=== PATIENT | female | born 1965 | race Caucasian/White ===

== ENCOUNTER 2021-02-28 08:46 | Outpatient (CLI) | payer OTHER, SELFPAY ==
--- NOTE | 2021-02-28 08:56 | MM_ITS ---
WS: [id number] BILATERAL SCREENING DIGITAL MAMMOGRAM WITH CAD HISTORY: Screening. COMPARISON: 09/25/2016 and 10/30/2008 Bilateral CC and MLO views submitted. Computer aided detection analyzed. Breast composition: There are scattered areas of fibroglandular density. No suspicious masses, microc alcifications or architectural distortion. MM/[id number] IMPRESSION: BI-RADS: 1-Negative FOLLOW UP: 1 Year Follow-up
== END 2021-02-28 08:47 | disposition home or self-care (01) ==
LOC: RADSHAW 08:51
PROVIDERS: PCP Nurse Practitioner Family; Visit Provider Nurse Practitioner Family
DX: Z12.31 Encounter for screening mammogram for malignant neoplasm of breast (principal)
CPT/HCPCS: 77067

== ENCOUNTER → 2023-08-06 09:52 | Outpatient (BNVA) | payer OTHER, SELFPAY | PROVIDERS: PCP Nurse Practitioner Family; Visit Provider Nurse Practitioner Family | DX: F41.9 Anxiety disorder, unspecified (principal); F32.A Depression, unspecified; Z79.899 Other long term (current) drug therapy; Z13.6 Encounter for screening for cardiovascular disorders; E78.2 Mixed hyperlipidemia | CPT/HCPCS: 80053; 80061; 81003; 83036; 84439; 84443; 84481; 85025; 87077; 87086; 87184 ==

== ENCOUNTER → 2023-08-13 09:09 | Outpatient (BNVA) | payer OTHER, SELFPAY | PROVIDERS: PCP Nurse Practitioner Family; Visit Provider Nurse Practitioner Family | DX: N39.0 Urinary tract infection, site not specified (principal); R32 Unspecified urinary incontinence; R31.9 Hematuria, unspecified; R82.90 Unspecified abnormal findings in urine; E78.2 Mixed hyperlipidemia | CPT/HCPCS: 81003; 87077; 87086; 87184 ==

== ENCOUNTER 2023-08-16 14:54 | Outpatient (CLI) | payer OTHER, SELFPAY ==
--- NOTE | 2023-08-16 15:00 | MM_ITS ---
WS: [id number] BILATERAL 3D TOMOSYNTHESIS DIGITAL SCREENING MAMMOGRAPHY WITH CAD CLINICAL INFORMATION: Z12.31 - Encounter for screening mammogram for malignant ... HISTORY: Screening mammogram. No current complaints. COMPARISON: 2020 TECHNIQUE: Bilateral CC and MLO views. FINDINGS: Scattered fibroglandular densities bilaterally. No suspicious focal mass, asymmetry, calcifications, or architectural distortion. No evidence of malignancy. A few tiny incidental punctate calcifications . IMPRESSION: MM/[id number] BI-RADS: 2-Benign FOLLOW UP: 1 Year Follow-up Recommend return to annual screening mammography.
== END 2023-08-16 14:55 | disposition home or self-care (01) ==
LOC: RAD 14:55
PROVIDERS: PCP Nurse Practitioner Family; Visit Provider Nurse Practitioner Family
DX: Z12.31 Encounter for screening mammogram for malignant neoplasm of breast (principal); R92.323 Mammographic fibroglandular density, bilateral breasts
CPT/HCPCS: 77063; 77067

== ENCOUNTER → 2023-09-01 14:09 | Outpatient (BNVA) | payer OTHER, SELFPAY | PROVIDERS: PCP Nurse Practitioner Family; Visit Provider Nurse Practitioner Family | DX: R32 Unspecified urinary incontinence (principal); E78.2 Mixed hyperlipidemia | CPT/HCPCS: 81003; 87077; 87086; 87184 ==

== ENCOUNTER → 2023-09-10 14:33 | Outpatient (BNVA) | payer OTHER, SELFPAY | PROVIDERS: PCP Nurse Practitioner Family; Visit Provider Obstetrics & Gynecology | DX: N39.0 Urinary tract infection, site not specified (principal); B96.20 Unspecified Escherichia coli [E. coli] as the cause of diseases classified elsewhere; R82.90 Unspecified abnormal findings in urine; N39.498 Other specified urinary incontinence | CPT/HCPCS: 81000 ==

== ENCOUNTER 2023-09-21 16:56 | Observation (INO) | payer OTHER, SELFPAY ==
[2023-09-16 09:50] LABS: Basophils % 0.5 %; Eosinophils # 0.1 10^3/uL (0.0-0.8); Hematocrit 38.7 % (36-47); Lymphocytes # 1.5 10^3/uL (0.8-4.8); Lymphocytes % 24.1 %; Mean Corpuscular HGB Conc 33.1 g/dL (30-55); Mean Corpuscular Hemoglobin 29.3 pg (27-33); Mean Corpuscular Volume 88.6 fl (85-98); Mean Platelet Volume 9.4 fL (7.4-10.4); Monocytes # 1.1 10^3/uL (0.2-0.9); Monocytes % 18.1 %; Neutrophils # 3.31 10^3/uL (1.8-7.7); Nucleated Red Blood Cells % 0 %; Platelet Count 199 10^3/cmm (157-399); Red Blood Count 4.37 10^6/uL (3.85-5.65); Red Cell Distribution Width 12.8 % (12.1-15.1); White Blood Count 6.02 10^3/uL (3.29-11.43)
--- NOTE | 2023-09-16 09:57 | P.ANESASSM_ITS ---
Pre-Anesthetic Assessment Height/Weight: Height 1.6 m Operation Date: 09/21/23 14:20 Proposed Procedures p Posterior Repair Posterior Colporrhaphy(Not Applicable) - Pablo Purcell MD Familial anesthetic complications: none Was Beta Norma taken within 24 hours: N/A Was Clonidine taken within 24 hours: N/A Social No alcohol and No tobacco Exam alert, oriented x 3, clear to auscultation bilaterally and regular rate & rhythm Airway Submandibular: within normal limits Cervical ROM: within normal limits Mallampati: Class II Dentition: false CV/HEM Hypertension Metabolic Hyperlipidemia and Morbid Obesity Neuropsych Anxiety and Depression Anesthetic Plan ASA status: 3 Anesthesia: General Medications/Allergies Home Medications Medication Instructions Recorded Confirmed Last Taken Type cyclobenzaprine 10 mg tablet 10 mg PO PRN muscle spasms 08/06/23 09/16/23 09/13/23 History lisinopril 10 mg tablet 10 mg PO DAILY 08/06/23 09/16/23 09/16/23 History sertraline 100 mg tablet 100 mg PO BEDTIME 08/06/23 09/16/23 09/15/23 History rosuvastatin 5 mg tablet (Crestor) 5 mg PO DAILY 30 days #30 tabs 08/13/23 09/16/23 09/16/23 Rx cefuroxime axetil 250 mg tablet 250 mg PO BID 10 days #20 tabs 09/05/23 09/16/23 09/16/23 Rx oxybutynin chloride 5 mg tablet 5 mg PO BID 09/16/23 09/16/23 09/16/23 History Allergies Allergy/AdvReac Type Severity Reaction Status Date / Time tetracycline AdvReac Intermediate ADR-Anxiety Verified 09/10/23 13:57 [facility] Anesthesia Medical History (Updated 09/10/23 @ 15:12 by Pablo Purcell MD) E. coli UTI Foul smelling urine Hematuria Essential hypertension Encounter for mammogram to establish baseline mammogram Urinary incontinence Mixed hyperlipidemia Anxiety and depression Surgical History (Updated 09/16/23 @ 09:19 by Brianna Peterson RN) S/P bladder repair S/P hysterectomy Data Anesthesia 09/16/23 09:35 09/16/23 09:35 Short CBC 09/16/23 Range/Units 09:35 WBC 6.02 (3.29-11.43) 10^3/uL Hgb 12.80 (11.27-16.99) g/dL Hct 38.7 (36-47) % MCV 88.6 (85-98) fl Plt Count 199 (157-399) 10^3/cmm Neut % (Auto) 55.0 % Neut # (Auto) 3.31 (1.8-7.7) 10^3/uL Cardiac Studies: 2 No Data to Display
[2023-09-16 10:10] LABS: Alanine Aminotransferase 14 U/L (0-33); Albumin Level 4.1 g/dL (3.5-5.2); Alkaline Phosphatase 97 U/L (35-105); Anion Gap 12.2 (5-19); Aspartate Amino Transferase 18 U/L (0-32); Blood Urea Nitrogen 11 mg/dL (6-20); Carbon Dioxide 28 mmol/L (22-29); Chloride 105 mmol/L (98-107); Glomerular Filtration Rate 126.3 mL/min (90-130); Glucose 105 mg/dL (65-115); Osmolality Calculated 292 mOsm/kg (285-295); Potassium 4.2 mmol/L (3.5-5.1); Sodium 141 mmol/L (136-145); Total Bilirubin 0.2 mg/dL (0.15-1.2); Total Protein 7.1 g/dL (6.6-8.7)
[2023-09-21] VITALS (15 sets, daily range): BP systolic 100–158; BP diastolic 71–91; PULSE 74–89; RESP 16–18; TEMP 36.2–36.4; O2SAT 90–97; BMI 40.2; BMI 43.5
--- NOTE | 2023-09-21 13:21 | P.ANESUD_ITS ---
Pre-Anesthetic Update Pre-Anesthetic Assessment: Date of Surgery/Procedure: 09/21/23 Preop Denise gnosis: Rectocele stage III Proposed Procedure: Operation Date: 09/21/23 14:20 Proposed Procedures p Posterior Repair Posterior Colporrhaphy(Not Applicable) - Pablo Purcell MD Last Intake: Intake Last Liquid Date 09/21/23 Last Liquid Time 08:00 Last Solid Date 09/20/23 Last Solid Time 22:00 Vitals: Oxygen Delivery Me thod Room Air 09/21/23 13:07 Exam: Pre-Anes Outpt Exam: alert, oriented x 3, clear to auscultation bilaterally and regular rate & rhythm Cardiac Studies: No Data to Display
[2023-09-21] MEDS: enoxaparin 30 mg/0.3 mL Syringe SUBCUT (13:25)
[2023-09-21] MEDS: scopolamine 1.5 Patch 1 PATCH TRANSDERMA (13:25)
[2023-09-21] MEDS: sodium chloride 0.9% 1,000 ML 30 ML IV (13:25)
--- NOTE | 2023-09-21 15:08 | W.PM.OPSUD ---
Surgery/Procedure H&P Update DATE OF PROCEDURE: September 21, 2023 DATE H&P PERFORMED: 09/10/23 H&P UPDATE INFORMATION: I have reviewed H&P completed within last 30 days, I have examined patient prior to procedure and No changes to prior documentation PREOP DIAGNOSIS: Rectocele stage III PLANNED PROCEDURE: Operation Date: 09/21/23 14:20 Proposed Procedures p Posterior Repair Posterior Colporrhaphy(Not Applicable) - Pablo Purcell MD
[2023-09-21] MEDS: ceFAZolin 2,000 MG in sodium chloride 0.9% (plus) 50 ML 100 MG IV (15:53)
[2023-09-21] MEDS: lidocaine-epi 2% PF 1:200,000 20 mL SDV INJECTION (16:07)
--- NOTE | 2023-09-21 17:02 | PM.OP ---
Operative Report Date of procedure: September 21, 2023 Pre-op diagnosis: Rectocele stage III Post-op diagnosis: same Procedure done: Posterior colporrhaphy Surgeon: Pablo Purcell MD Estimated blood loss (mL): 25 IV fluids (mL): 800 Urine output (mL): 300 Complications: None Procedure: After obtaining informed consent, the patient was taken to the operating room and placed in the supine position, given general anesthesia, and prepped and draped in sterile fashion. The abdomen, vulva and vagina were prepped and draped in a sterile manner. A time out procedure was performed. A dilute 2% lidocaine with epinephrine solution was infiltrated under the posterior vaginal mucosa midline and into the perineal body. An johny incision of the skin was cut in the perineum. The posterior vaginal wall was opened vertically and midline up to the apex of the rectocele. The cut edges were held and splayed laterally with a series of Allis clamps. The open vaginal mucosa was then dissected laterally with a combination of sharp and blunt dissection, exposing the perirectal fascia. The perirectal fascia was then reapproximated with interrupted #2-0 Vicryl sutures to draw the lateral folds together and tuck the rectocele back. Deep interrupted sutures of #0 Vicryl were used to reapproximate the fibers of the levator ani muscles. The excess vaginal mucosa was trimmed. The posterior vaginal wall was closed with a running locked #0 Vicryl to the hymenal tags. The superficial perineal muscles were closed with running unlocked #0 Vicryl and the perineal skin was closed with running subcuticular #2-0 Vicryl. Excellent hemostasis was obtained. A vaginal pack is placed overnight as postoperative support for the vaginal tissues after graft placement and closure of vaginal incisions. Sponge, lap, needle, and instrument counts were correct times three. The patient was taken to the recovery room, awake and in stable condition.
[2023-09-21] MEDS: ketorolac 30 mg/mL INJ IVP (18:27)
[2023-09-21] MEDS: dextrose 5%-lactated ringers 1,000 ML 125 ML IV (18:28)
[2023-09-21] MEDS: oxybutynin 5 mg Tablet PO (18:29)
[2023-09-21] MEDS: docusate sodium 100 mg Capsule PO (18:29)
[2023-09-21] MEDS: HYDROcodone-acetaminophen 5-325 mg Tablet PO (18:34)
--- NOTE | 2023-09-21 19:00 | ANE.PACU2 ---
Inpatient post-anesthesia follow up: Vital signs: Temperature 97.5 F Pulse Rate 74 Respiratory Rate 18 Blood Pressure 152/84 Pulse Oximetry 95 Oxygen Delivery Me thod Room Air Oxygen Flow Rate 6 Fraction of Inspir ed Oxygen Hydration adequate: Yes Nausea and vomiting: No Mental status: Baseline Additional Comments: no apparent anesthetic complications noted
[2023-09-21] MEDS: simethicone 80 mg Chew PO (20:23)
[2023-09-21] MEDS: cyclobenzaprine 10 mg Tablet PO (20:23)
[2023-09-21] MEDS: sertraline 100 mg Tablet PO (20:23)
[2023-09-22] MEDS: HYDROcodone-acetaminophen 5-325 mg Tablet PO ×2 (00:30→09:31)
[2023-09-22] MEDS: ketorolac 30 mg/mL INJ IVP ×2 (00:30→05:51)
[2023-09-22 03:54] VITALS: BP 128/75; PULSE 82; RESP 17; TEMP 36.8; O2SAT 92
[2023-09-22] MEDS: simethicone 80 mg Chew PO (05:51)
--- NOTE | 2023-09-22 06:20 | PC.NURSE ---
Vaginal packing removed. Patient tolerated removal. Will continue to monitor.
[2023-09-22 06:28] LABS: Hematocrit 33.9 % (36-47); Mean Corpuscular HGB Conc 34.2 g/dL (30-55); Mean Corpuscular Hemoglobin 29.3 pg (27-33); Mean Corpuscular Volume 85.6 fl (85-98); Mean Platelet Volume 9.4 fL (7.4-10.4); Platelet Count 238 10^3/cmm (157-399); Red Blood Count 3.96 10^6/uL (3.85-5.65); Red Cell Distribution Width 12.4 % (12.1-15.1); White Blood Count 9.33 10^3/uL (3.29-11.43)
[2023-09-22 07:38] VITALS: BP 124/78; PULSE 83; RESP 16; TEMP 36.9; O2SAT 94
--- NOTE | 2023-09-22 08:21 | PM.OBGYDC ---
Discharge Providers MUSIC THERAPY SPECIALIST Date of Admission: 09/21/23 16:56 Date of Discharge: 09/22/23 Attending Provider at Admission: Pablo Purcell MD Attending Provider at Discharge: Pablo Purcell MD Primary MUSIC THERAPY SPECIALIST: Pablo Purcell MD Primary Care Provider: JORGE Flores Reason for Visit Reason for Visit: [id number] Hospital Course Hospital Course Ms. Cueva is a 58 year old , with history of rectocele stage III. Admitted for planned posterior colporrhaphy. The procedure was performed without complications. She is afebrile and hemodynamically stable postoperative day 1. Tolerating diet well. Ambulating without difficulty. She was counseled regarding pelvic rest for 6 weeks (no sex, no tampons, no vaginal douches). Return to the emergency room if any fever, increased bleeding or pain. She was also advised limitation of heavy weight lifting to 10 pounds. Physical Exam Narrative: GA: Alert and oriented ?3. HEENT: WNL. Heart: Regular rate and rhythm. Lungs: Clear to auscultation bilaterally. Abdomen: Bowel sounds present, nontender, minimal tenderness, incision clean and dry, no redness, pain or edema. HEAD INSPECTOR AND CENTER MARKER: Spotting bleeding. Extremities: No edema, no cyanosis, no calves pain. Urinary Catheter Management: Hsieh: Cath Placed During This Visit: yes, but has since been removed by the nurse Reason for Continuing Indwelling Catheter: Decision to DC Catheter Urinary Catheter Date of Insertion: 09/21/23 Urinary Catheter Time of Insertion: 16:03 Date Urinary Catheter Removed: 09/22/23 Time Urinary Catheter Discontinued: 06:05 History History History 5 Term 2 0 Miscarriages/Ectopic 3 Living Children 2 Discharge Data Studies Completed and Pending Laboratory Results WBC 9.33 10^3/uL (3.29-11.43) 09/22/23 06:13 RBC 3.96 10^6/uL (3.85-5.65) 09/22/23 06:13 Hgb 11.60 g/dL (11.27-16.99) 09/22/23 06:13 Hct 33.9 % (36-47) L 09/22/23 06:13 MCV 85.6 fl (85-98) 09/22/23 06:13 MCH 29.3 pg (27-33) 09/22/23 06:13 MCHC 34.2 g/dL (30-55) 09/22/23 06:13 RDW 12.4 % (12.1-15.1) 09/22/23 06:13 Plt Count 238 10^3/cmm (157-399) 09/22/23 06:13 MPV 9.4 fL (7.4-10.4) 09/22/23 06:13 Neut % (Auto) 55.0 % 09/16/23 09:35 Lymph % (Auto) 24.1 % 09/16/23 09:35 Davidson % (Auto) 18.1 % 09/16/23 09:35 Eos % (Auto) 2.0 % 09/16/23 09:35 Baso % (Auto) 0.5 % 09/16/23 09:35 Neut # (Auto) 3.31 10^3/uL (1.8-7.7) 09/16/23 09:35 Lymph # (Auto) 1.5 10^3/uL (0.8-4.8) 09/16/23 09:35 Davidson # (Auto) 1.1 10^3/uL (0.2-0.9) H 09/16/23 09:35 Eos # (Auto) 0.1 10^3/uL (0.0-0.8) 09/16/23 09:35 Baso # (Auto) 0.0 10^3/uL (0.0-0.1) 09/16/23 09:35 Nucleated RBC % (auto) 0 % 09/16/23 09:35 Nucleated RBCs # 0.0 /100WBC 09/16/23 09:35 Sodium 141 mmol/L (136-145) 09/16/23 09:35 Potassium 4.2 mmol/L (3.5-5.1) 09/16/23 09:35 Chloride 105 mmol/L (98-107) 09/16/23 09:35 Carbon Dioxide 28 mmol/L (22-29) 09/16/23 09:35 Anion Gap 12.2 (5-19) 09/16/23 09:35 BUN 11 mg/dL (6-20) 09/16/23 09:35 Creatinine 0.5 mg/dL (0.5-0.9) 09/16/23 09:35 GFR Calculation 126.3 mL/min (90-130) 09/16/23 09:35 Glucose 105 mg/dL (65-115) 09/16/23 09:35 Calculated Osmolality 292 mOsm/kg (285-295) 09/16/23 09:35 Calcium 9.0 mg/dL (8.5-10.5) 09/16/23 09:35 Total Bilirubin 0.2 mg/dL (0.15-1.2) 09/16/23 09:35 AST 18 U/L (0-32) 09/16/23 09:35 ALT 14 U/L (0-33) 09/16/23 09:35 Alkaline Phosphatase 97 U/L (35-105) 09/16/23 09:35 Total Protein 7.1 g/dL (6.6-8.7) 09/16/23 09:35 Albumin 4.1 g/dL (3.5-5.2) 09/16/23 09:35 Globulin 3.0 g/dL (1.3-4.6) 09/16/23 09:35 Blood Type O Positive 09/21/23 13:35 Rho(D) Type Rh positive 09/21/23 13:35 Antibody Screen Negative 09/21/23 13:35 Vitals Last Vital Signs Temp 98.4 F 09/22/23 07:38 Pulse 83 09/22/23 07:38 Resp 16 09/22/23 07:38 BP 124/78 09/22/23 07:38 Pulse Ox 94 09/22/23 07:38 O2 Del Method Room Air 09/22/23 07:38 O2 Flow Rate 6 09/21/23 17:17 Results Labs OB ([facility]): Blood Type O Positive 09/21/23 Antibody Screen Negative 09/21/23 Hct 33.9 % (36-47) L 09/22/23 Hgb 11.60 g/dL (11.27-16.99) 09/22/23 Rho(D) Type Rh positive 09/21/23 Plt Count 238 10^3/cmm (157-399) 09/22/23 TSH 3.11 uIU/mL (0.27-4.20) 08/06/23 Free T4 0.94 ng/dL (0.82-1.77) 08/06/23 Hemoglobin A1c 5.1 % (4.0-6.0) 08/06/23 Micro Urine Specimen 09/01/23 Discharge Plan Discharge Patient Disposition: Home Condition: Stable Prescriptions: New hydrocodone-acetaminophen 5-325 mg tablet 1 tab PO Q4H PRN (Reason: pain) Qty: 20 0RF acetaminophen 325 mg capsule 325 mg PO Q4H PRN (Reason: fever or postoperative pain) Qty: 60 0RF ibuprofen 800 mg tablet 800 mg PO TID PRN (Reason: pain) Qty: 60 0RF docusate sodium [Colace] 100 mg capsule 100 mg PO BID Qty: 60 3RF Continued sertraline 100 mg tablet 100 mg PO BEDTIME lisinopril 10 mg tablet 10 mg PO DAILY cyclobenzaprine 10 mg tablet 10 mg PO PRN rosuvastatin [Crestor] 5 mg tablet 5 mg PO DAILY 30 Days Qty: 30 2RF oxybutynin chloride 5 mg tablet 5 mg PO BID Rx Instructions: 1 TAB IN MORNING AND 2 AT NIGHT orally; Discharge Orders: Discharge Order (Routine); Ordered 09/22/23 Ordered By: Pablo Purcell Referrals: Pablo Purcell MD [Physician] - Discharge Diet: Soft Mechanical Discharge Activity: Limit activity as instructed Patient Instructions: Posterior Vaginal Repair (GEN), Enterocele Repair (GEN), Opioid Safety Activity Restrictions/Additional Instructions: 1. Please call [facility] on next working day to make your post-operative appointment in 2 weeks. 2. Please stay home until you come back to the clinic on first post-hospatilization check up. 3. Please follow instructions on your medications CAREFULLY. 4. If you have abdominal incision, do not cover it unless dressing is necessary because of drainage. OK to shower, but avoid bath. Leave steri-strips until they fall off. If they are still on one week after surgery, you may remove them. 5. If you had vaginal surgery or vaginal repair, Dr. Purcell may instruct you to take SITZ bath. 6. Yellow, blood tinged odorous vaginal discharge is usually normal after hysterectomy or vaginal surgeries. 7. No SEXUAL INTERCOURSE, tampons, or douches until you are completely released from the post-operative care. 8. Avoid constipation by eating right and maybe using some Metamucil or Milk of Magnesia. 9. All prescription refills are given during the working hours. Please do no wait till it runs out. Call the clinic at [phone] before your medication runs out. The clinic will get in touch with your doctor to prescribe medications if necessary. 10. Please remain within 40 mile radius from our hospital because emergencies do happen now and then during the post-operative period. 11. If you have stairs at home, take one step at a time slowly and minimize the number of trips. It helps to stay in one floor for the next few days. No lifting except what you can lift by one hand until you are released from the post-operative care. 12. Driving is discouraged until you are well healed. It may be 3-4 weeks before you feel strong enough to drive. You should be able to turn and look through the rear window without pain and you should be able to push the brake pedal very hard without pain before you drive. No fast rules, but SAFETY should be your primary concern. DO NOT drive if you are on sedating medications such as narcotics. 13. Call the clinic (during working hours) to make urgent appointment or go to the Emergency room, if any of the following occurs: i. Vaginal bleeding becomes heavy, more than a period. ii. Incision becomes red and sore, or drains pus. iii. Your TEMPERATURE is over 100.4F or you have chill. iv. IV site becomes red and swollen (a little ``knot?? is usually OK) v. Persistent nausea and vomiting vi. Persistent constipation or diarrhea vii. Rash or allergic reaction to medications. Discharge Attestations MUSIC THERAPY SPECIALIST Time Spent in Discharge Care*: greater than 30 min Coding Level of Care Code Acute Code for Chg Fwd
[2023-09-22] MEDS: docusate sodium 100 mg Capsule PO (08:33)
[2023-09-22] MEDS: atorvastatin 40 mg Tablet 20 MG PO (08:33)
[2023-09-22] MEDS: lisinopril 10 mg Tablet PO (08:34)
[2023-09-22] MEDS: oxybutynin 5 mg Tablet PO (08:34)
== END 2023-09-22 10:25 | disposition home or self-care (01) ==
LOC: MEDSURG 17:00
PROVIDERS: Admitting Provider Obstetrics & Gynecology; PCP Nurse Practitioner Family; Visit Provider Obstetrics & Gynecology
PROC: (CPT 57250; principal; 2023-09-21 14:00)
DX: N81.6 Rectocele (principal); I10 Essential (primary) hypertension; E66.01 Morbid (severe) obesity due to excess calories; Z68.41 Body mass index [BMI] 40.0-44.9, adult; E78.2 Mixed hyperlipidemia
CPT/HCPCS: 57250; 36415; 80053; 85025; 85027; 86850; 86900; G0378; J0690; J1100; J1650; J1885; J2250; J2405; J2704; J3010; J3490; J7030; J7121

== ENCOUNTER → 2024-01-24 08:10 | Outpatient (BNVA) | payer OTHER, SELFPAY | PROVIDERS: PCP Nurse Practitioner Family; Visit Provider Podiatrist Foot & Ankle Surgery | DX: M76.821 Posterior tibial tendinitis, right leg | CPT/HCPCS: 73630 ==